=== PATIENT | female | born 1990 | race Caucasian/White ===

== ENCOUNTER 2019-12-09 13:55 | Emergency (ER) | payer BC ==
[~2019-12-09] VITALS: Ht 167.6 cm; Wt 77.3 kg
[~2019-12-09 13:55] MED LIST: MOTRIN 800800 MG/TAB PO; NORCO 325 MG-51 TAB PO; PERCOCET 325 MG1 TA2 PO; PRENATAL PO; PROAIR HFA0.09 MG/AC IH; RT ALBUTER2.5 MG/0.5 IH; ZYRTEC 10MG10 MG PO
[2019-12-09 14:08] VITALS: TEMP 98.5
[2019-12-09 16:03] LABS: COLLECTION METHOD CLEAN CATCH
[2019-12-09 16:19] LABS: MUCOUS Present /lpf; PH 5 (5-8); SQUAMOUS EPITHELIAL 0-2 /hpf; URINE APPEARANCE Clear; URINE BACTERIA None Seen /hpf; URINE BILIRUBIN Negative (NEGATIVE); URINE BLOOD Negative (NEGATIVE); URINE COLOR Yellow; URINE GLUCOSE Negative (NEGATIVE); URINE KETONE Trace (NEGATIVE); URINE LEUKOCYTE ESTERASE Negative (NEGATIVE); URINE NITRATE Negative (NEGATIVE); URINE PROTEIN(semi-quant) Negative (NEGATIVE); URINE RBC 0-2 /hpf; URINE UROBILINOGEN Negative (NEGATIVE)
[2019-12-09 16:55] LABS: BASO % 0.2 % (0.0-2.0); EOS # 0.5 (0.0-0.7); EOS % 4.1 % (0-4.0); GRAN # 8.8 (1.4-6.5); HEMATOCRIT 39.2 % (37.0-47.0); HEMOGLOBIN 13.1 g/dl (12.5-16.0); LYMPH # 2.1 (1.2-3.4); LYMPH % 17.3 % (20.0-51.0); MEAN CELL VOLUME 87 fl (80.0-100.0); MEAN CORPUSCULAR HEMOGLOBIN 29 pg (27.0-31.0); MEAN CORPUSCULAR HGB CONC 33 g/dl (33.0-37.0); MEAN PLATELET VOLUME 10.8 fl (7.4-10.4); MONO # 0.6 (0.1-0.6); PLATELET COUNT 260 K/mm3 (130-400); RED BLOOD COUNT 4.51 M/mm3 (4.10-5.30); REDCELL DISTRIBUTION WIDTH-CV 11.9 % (11.5-14.5)
[2019-12-09 17:04] LABS: ALBUMIN 4.3 gm/dL (3.5-5.0); BILIRUBIN,TOTAL 0.5 mg/dL (0.0-1.0); C-REACTIVE PROTEIN 1.1 mg/dL (0.0-0.9); CALCIUM 9.3 mg/dL (8.4-10.2); CREATININE, serum 0.68 (0.52-1.25); POTASSIUM 3.3 mmol/L (3.4-5.0); TOTAL PROTEIN 7.5 gm/dL (6.4-8.2)
[2019-12-09] MEDS ORDERED: NORCO 325 MG-51 TAB PO (18:01)
[2019-12-09 19:01] VITALS: BP 114/77; PULSE 77
== END 2019-12-09 19:05 | disposition home or self-care (01) ==
LOC: COL.ER 13:55
PROVIDERS: Emergency Medicine
DX: R10.31 Right lower quadrant pain (principal); R10.32 Left lower quadrant pain; N80.9 Endometriosis, unspecified; Z32.02 Encounter for pregnancy test, result negative; Z88.1 Allergy status to other antibiotic agents
CPT/HCPCS: J1885; J2405; J3010; J7030; Q9967

== ENCOUNTER → 2020-11-27 | Outpatient (CLI) | payer BC | LOC: COL.RAD 13:31 | DX: R06.02 Shortness of breath (principal); R07.89 Other chest pain | CPT/HCPCS: Q9967 ==

== ENCOUNTER 2021-03-04 11:38 | Outpatient (CLI) | payer BC ==
[~2021-03-04] VITALS: Ht 165.1 cm; Wt 81.8 kg
[~2021-03-04 11:38] MED LIST changes: +AMOXICILLIN 50500 MG PO; +ASPIRIN 81M81 MG/TA2 PO; +SINGULAIR 110 MG/TAB PO
[2021-03-04 11:54] VITALS: BP 127/77; PULSE 95
--- NOTE | 2021-03-04 12:15 | NUR ---
1115: PT. INSTRUCTED TO COME TO UNIT FROM DR. MONTOYA DUE TO BH CTX AND VAGINAL DISCHARGE THAT HAS "BLOODY STREAKS" IN IT. PT. AMBULATORY TO UNIT AND ESCORTED TO LR3 AND ORIENTED TO ROOM. CLEAN GOWN ON, EFM/TOCO APPLIED, VS OBTAINED, ASSESSMENTS COMPLETED. DISCUSSED POC W/ PT. NO QUESTIONS/CONCERNS AT THIS TIME. 1210: DISCHARGED PER DR. MONTOYA. DC PAPERWORK GONE OVER W/ PT. PT. HAS NO QUESTIONS/CONCERNS AT THIS TIME. INFORMED PT TO CALL WITH ANY QUESTIONS/CONCERNS. RN ESCORTED PT. TO FRONT OF UNIT IN STABLE CONDITION
== END 2021-03-04 12:10 | disposition home or self-care (01) ==
LOC: LDRO 11:38
DX: O62.9 Abnormality of forces of labor, unspecified (principal); O26.893 Other specified pregnancy related conditions, third trimester; N89.8 Other specified noninflammatory disorders of vagina; Z3A.28 28 weeks gestation of pregnancy

== ENCOUNTER 2021-05-08 02:28 | Outpatient (CLI) | payer BC ==
[~2021-05-08] VITALS: Ht 165.1 cm; Wt 89.1 kg
--- NOTE | 2021-05-08 02:35 | NUR ---
to unit via wheelchair for labor assessment. Pt reports "i've been in labor for 24hrs. I was trying to hold out for my C/S date but the contractions were getting too strong" Oriented to room, monitor, plan of care, questions invited and answered.
[2021-05-08 02:45] VITALS: BP 145/89; PULSE 73; TEMP 98.2
[2021-05-08] MEDS ORDERED: PREDNISONE 5MG5 MG PO (03:17)
[2021-05-08] MEDS ORDERED: RT ADVAIR 528 DISKUS IH (03:20)
[2021-05-08] MEDS ORDERED: PULMICORT0.5 MG/2 M IH (03:21)
[2021-05-08] MEDS ORDERED: ATROVENT INHALE14 GM IH (03:22)
[2021-05-08] MEDS ORDERED: FLOVENT 110MCG7.9 GM IH (03:22)
[2021-05-08] MEDS ORDERED: FLONASE NASAL S16 GM NS (03:23)
[2021-05-08] MEDS ORDERED: PATADAY 2.5 ML2.5 ML OU (03:25)
[2021-05-08 04:00] VITALS: BP 134/81
--- NOTE | 2021-05-08 04:00 | NUR ---
Repeat SVE with no changes noted. No vaginal bleeding or LOF. Discussed lack of cervical change with pt. [facility] Block vs Early Labor reviewed.
[2021-05-08] MEDS ORDERED: PERCOCET 325 MG1 TA2 PO (13:51)
[2021-05-08] MEDS ORDERED: MOTRIN 800800 MG/TAB PO (13:51)
== END 2021-05-08 04:25 | disposition home or self-care (01) ==
LOC: LDRO 02:28 → LDR 02:35 → LDRO 04:25
DX: O62.9 Abnormality of forces of labor, unspecified (principal); Z3A.38 38 weeks gestation of pregnancy
CPT/HCPCS: OP

== ENCOUNTER 2021-05-08 09:14 | Inpatient (IN) | payer BC ==
[~2021-05-08] VITALS: Ht 167.6 cm; Wt 89.1 kg
[2021-05-08] VITALS (20 sets, daily range): BP systolic 83–167; BP diastolic 61–98; PULSE 62–97; TEMP 98.5–98.6
[~2021-05-08 09:14] MED LIST changes: +ATROVENT INHALE14 GM IH; +FLONASE NASAL S16 GM NS; +FLOVENT 110MCG7.9 GM IH; +PATADAY 2.5 ML2.5 ML OU; +PREDNISONE 5MG5 MG PO; +PULMICORT0.5 MG/2 M IH; +RT ADVAIR 528 DISKUS IH
--- NOTE | 2021-05-08 09:15 | NUR ---
0915- Pt arrives on unit via wheelchair with complaints of contractions every 5 mins. Pt into bathroom to change into gown. 09- Pt into bed, EFM and TOCO applied and tracing well. O2 sat monitor on and tracing maternal HR. VSS. Pt denies VB or LOF. +FM per Pt. States she was seen early this morning for a labor check and was 1cm, discharged home. SVE /-1, cervix very posterior. Updated on plan to call physician for further orders, Pt verbalizes understanding.
[2021-05-08 10:34] LABS: BASO % 0.3 % (0.0-2.0); EOS # 0.1 K/mm3 (0.0-0.7); EOS % 0.8 % (0.0-4.0); GRAN # 6.3 K/mm3 (1.4-6.5); GRAN % 70.4 % (42.2-75.2); HEMOGLOBIN 11.7 g/dl (12.5-16.0); LYMPH # 1.8 K/mm3 (1.2-3.4); LYMPH % 20.4 % (20.0-51.0); MEAN CELL VOLUME 86 fl (80.0-100.0); MEAN CORPUSCULAR HEMOGLOBIN 29 pg (27-31); MEAN CORPUSCULAR HGB CONC 34 g/dl (33.0-37.0); MONO # 0.7 K/mm3 (0.1-0.6); MONO % 7.8 % (1.7-9.3); PLATELET COUNT 157 K/mm3 (130-400); RED BLOOD COUNT 4.03 M/mm3 (4.10-5.30)
[2021-05-08 10:35] LABS: HEMATOCRIT 34.7 % (37.0-47.0)
--- NOTE | 2021-05-08 11:52 | NUR ---
Patient off monitors and ambulates to OR.
[2021-05-08] MEDS ORDERED: MOTRIN 800800 MG/TAB PO (13:51)
[2021-05-08] MEDS ORDERED: PERCOCET 325 MG1 TA2 PO (13:51)
[2021-05-09 03:00] VITALS: BP 125/79; PULSE 75; TEMP 98.4
[2021-05-09 07:15] VITALS: BP 140/86; PULSE 66; TEMP 98
--- NOTE | 2021-05-09 09:58 | NUR ---
ICE PACK PROVIDED FOR RIGHT SIDED INCISIONAL PAIN.
--- NOTE | 2021-05-09 10:08 | NUR ---
Initial visit; Parents thanked Home Health Provider for offering congratulations and God's blessings for the of their son. Home Health Provider thanked family for choosing [facility].
[2021-05-09 11:00] VITALS: BP 126/73; PULSE 78; TEMP 97.9
[2021-05-09 16:17] VITALS: BP 130/77; PULSE 77; TEMP 98.1
[2021-05-09 21:00] VITALS: BP 120/63; PULSE 71; TEMP 98.3
[2021-05-10 08:30] VITALS: BP 114/66; PULSE 66; TEMP 98
== END 2021-05-10 12:15 | disposition home or self-care (01) | DRG 788 ==
LOC: LDRO 09:14 → LDR 09:45 → OB 09:45
PROVIDERS: Obstetrics & Gynecology; ADMIT Obstetrics & Gynecology
PROC: 10D00Z1 Extraction of Products of Conception, Low, Open Approach (ICD-10-PCS; principal; 2021-05-08)
DX: O34.211 Maternal care for low transverse scar from previous cesarean delivery (principal); O99.892 Other specified diseases and conditions complicating childbirth; N80.9 Endometriosis, unspecified; O24.420 Gestational diabetes mellitus in childbirth, diet controlled; O99.02 Anemia complicating childbirth; D64.9 Anemia, unspecified; O99.344 Other mental disorders complicating childbirth; F41.9 Anxiety disorder, unspecified; O99.52 Diseases of the respiratory system complicating childbirth; J45.909 Unspecified asthma, uncomplicated; Z3A.38 38 weeks gestation of pregnancy; Z37.0 Single live birth; Z86.16 Personal history of COVID-19; Z88.8 Allergy status to other drugs, medicaments and biological substances
CPT/HCPCS: J0171; J1100; J1720; J1885; J2370; J2405; J2590; J7120